=== PATIENT | male | born 1980 | race Two or more races ===

== ENCOUNTER 2017-06-10 22:54 | Emergency (ER) | payer SELFPAY ==
[~2017-06-10] VITALS: Ht 167.6 cm; Wt 84.9 kg
[2017-06-10 23:00] VITALS: BP 155/105
[2017-06-11 01:42] LABS: Urine Amorphous Crystal FEW /hpf (None Seen); Urine Bacteria NONE SEEN /hpf (None Seen); Urine Blood Negative /uL (Negative); Urine Specific Gravity 1.016 (1.001-1.035); Urine WBC None Seen /hpf (0 - 3)
== END 2017-06-11 05:23 | disposition left against medical advice (07) ==
LOC: ER 23:07
DX: R51 Headache (principal); Z53.21 Procedure and treatment not carried out due to patient leaving prior to being seen by health care provider
CPT/HCPCS: 70450; 81001